=== PATIENT | male | born 1970 | race American Indian/Alaskan Native ===

== ENCOUNTER 2021-01-05 22:44 | Emergency (ER) | payer MEDICAID ==
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
[2021-01-06 02:12] LABS: Mean Corpuscular HGB Conc 29 % (32-34); Platelet Count 234 K/mm3 (140-440); Red Blood Count 4.06 M/mm3 (3.65-5.03)
--- NOTE | 2021-01-06 02:12 | XRay Report ---
CHEST 1 VIEW INDICATION / CLINICAL INFORMATION: cough. FINDINGS: SUPPORT DEVICES: None. HEART / MEDIASTINUM: Mild cardiomegaly. LUNGS / PLEURA: Ill-defined bibasilar airspace opacities Signer Name: Cayetano Ho MD Signed: 01/06/2021 2:08 AM Workstation Name: [id number]
--- NOTE | 2021-01-06 02:14 | XRay Report ---
Right foot 3 views INDICATION: Right foot pain and swelling. IMPRESSION: No osseous destruction is identified. The bones and joint spaces appear relatively well-m aintained. Mild degenerative changes of the great toe MTP joint. Question soft tissue ulceration fahad g the plantar aspect of the midfoot/hindfoot junction. Signer Name: Cayetano Ho MD Signed: 01/06/2021 2:10 AM Workstation Name: [id number]
[2021-01-06 02:19] VITALS: BP 99/61
[2021-01-06 02:20] LABS: Hematocrit 27.6 % (35.5-45.6); Hemoglobin 8.1 gm/dl (11.8-15.2); Mean Corpuscular Volume 68 fl (84-94)
[2021-01-06 02:33] LABS: Alanine Aminotransferase 44 units/L (7-56); BUN/Creatinine Ratio 22; Blood Urea Nitrogen 29 mg/dL (9-20); Calcium 8.3 mg/dL (8.4-10.2); Hemolysis Index 0
[2021-01-06] MEDS ORDERED: KETOROLAC 30 MG/1 ML INJ IM ONE (02:51)
[2021-01-06] MEDS ORDERED: IPRATROPIUM/ALBUTEROL SULFATE 3 ML AMPUL.NEB IH ONE (02:51)
[2021-01-06 05:09] LABS: Hypochromasia 2+; Total Cells Counted 100
[2021-01-06 05:10] LABS: Anisocytosis 1+
[2021-01-06 05:11] LABS: Platelet Estimate Consistent w Auto; Schistocytes Few
--- NOTE | 2021-01-08 10:09 | Electrocardiograph Report ---
[facility] Test Date: 2021-01-06 Test Time: 03:02:18 Pat Name: LEANA ALEGRIA Department: Room: Gender: M [employer] Representative: MUBERTO : 1970 Requested By: VALERIA PANIAGUA Order Number: [id number] Reading MD: Thaddeus Cameron Measurements Intervals Heber Rate: 79 P: 21 IL: 202 QRS: -4 QRSD: 92 T: -29 QT: 406 QTc: 464 Interpretive Statements Sinus rhythm Borderline prolonged IL interval Probable left atrial enlargement No previous ECG available for comparison Electronically Signed On 01-08-2021 10:08:49 EDT by Thaddeus Cameron
== END 2021-01-06 07:22 | disposition home or self-care (01) ==
LOC: ED 22:44
DX: D64.9 Anemia, unspecified (principal); U09.9 Post COVID-19 condition, unspecified; M79.671 Pain in right foot; I10 Essential (primary) hypertension; E11.8 Type 2 diabetes mellitus with unspecified complications; Z98.890 Other specified postprocedural states; F17.200 Nicotine dependence, unspecified, uncomplicated
CPT/HCPCS: 36415; 71045; 73630; 80053; 82962; 83880; 84484; 85007; 85025; 93005; 94640; 96372; 99284; J1885; 94644